=== PATIENT | male | born 1980 | race Caucasian/White ===

== ENCOUNTER 2024-10-25 15:04 | Emergency (ER) | payer BC ==
[2024-10-25] MEDS ORDERED: LIDOCAINE 1% MPF 5 ML VIAL ONE (15:39)
[2024-10-25] MEDS ORDERED: DOXYCYCLINE 100 MG CAP PO ONE (15:40)
[2024-10-25] MEDS ORDERED: TDAP (DIPHTH,PERTUSS(ACELL),TET VAC) 0.5 ML VIAL IMVAC ONE (15:40)
--- NOTE | 2024-10-25 18:09 | ER ---
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 Bleeding controlled with dressing in place. Coronavirus screen: Client denies travel out of the [place] in the last 14 days. At this time, the client does not indicate any symptoms associated with coronavirus-19. Ebola Screen: Patient denies travel to an Ebola-affected area in the 21 days before illness onset. Initial Sepsis Screen: Does the patient meet any 2 criteria? No. Patient's initial sepsis screen is negative. Does the patient have a suspected source of infection? No. Patient's initial sepsis screen is negative. Risk Assessment: Do you want to hurt yourself or someone else? Patient reports no desire to harm self or others. Onset of symptoms was October 25, 2024. 15:25 Method Of Arrival: Ambulatory ll1 15:25 Acuity: MICHA 4 ll1 Historical: - Allergies: 15:25 No Known Allergies; ll1 - Home Meds: 15:25 None [Active]; ll1 - PMHx: 15:25 None; ll1 - PSHx: 15:25 None; ll1 - Immunization history:: Client reports having NOT received the Covid vaccine. - Infectious Disease History:: Denies. - Social history:: Smoking status: Patient denies any tobacco usage or history of. Screenin:13 [facility] ED Fall Risk Assessment (Adult) History of falling in the last 3 months, kc6 including since admission Yes- single mechanical fall (1 pt) Confusion or Disorientation No (0 pts) Intoxicated or Sedated No (0 pts) Impaired Gait No (0 pts) Mobility Assist Device Used No (0 pt) Altered Elimination No (0 pt) Score/Fall Risk Level 0 - 2 = Low Risk Oriented to surroundings, Maintained a safe environment, Educated pt \T\ family on fall prevention, incl call for assistance when getting out of bed. Abuse screen: Denies threats or abuse. Denies injuries from another. Nutritional screening: No deficits noted. Tuberculosis screening: No symptoms or risk factors identified. Assessment: 16:13 General: Appears in no apparent distress. comfortable, well groomed, well developed, kc6 Behavior is calm, cooperative, appropriate for age. Pain: Complains of pain in dorsum of right foot. Neuro: Level of Consciousness is awake, alert, obeys commands, Oriented to person, place, time, situation, Appropriate for age. Cardiovascular: Capillary refill < 3 seconds. Respiratory: Airway is patent Trachea midline Respiratory effort is even, unlabored, Respiratory pattern is regular, symmetrical. GI: No signs and/or symptoms were reported involving the gastrointestinal system. : No signs and/or symptoms were reported regarding the genitourinary system. EENT: No signs and/or symptoms were reported regarding the EENT system. Derm: Skin is healthy with good turgor, Skin is pink, warm \T\ dry. Musculoskeletal: No signs and/or symptoms reported regarding the musculoskeletal system. Circulation, motion, and sensation intact. Range of motion: intact in all extremities. Injury Description: Laceration sustained to dorsum of right foot is jagged, 0.5 to 2.5 cm long, was sustained 30-60 minutes ago. a small amount of bleeding noted at this time. 17:21 Reassessment: Patient appears in no apparent distress at this time. No changes from kc6 previously documented assessment. Patient and/or family updated on plan of care and expected duration. Pain level reassessed. Patient is alert, oriented x 3, equal unlabored respirations, skin warm/dry/pink. 18:15 Reassessment: Patient appears in no apparent distress at this time. No changes from kc6 previously documented assessment. Patient and/or family updated on plan of care and expected duration. Pain level reassessed. Patient is alert, oriented x 3, equal unlabored respirations, skin warm/dry/pink. Vital Signs: 15:25 Pain 5/10; ll1 15:33 BP 141 / 92; Pulse 68; Resp 16 S; Pulse Ox 99% on R/A; kc6 18:16 BP 138 / 86; Pulse 70; Resp 18 S; Pulse Ox 99% on R/A; kc6 15:25 Pain Scale: Adult ll1 ED Course: 15:05 Patient arrived in ED. mr 15:08 [facility] Hutch[facility]C [facility] kb 15:09 Law Garay MD is Attending Physician. kb 15:21 Arm band placed on Patient placed in an exam room, on a stretcher. ph 15:27 Triage completed. ll1 15:32 Manuela Enriquez, PRANAV is Primary Nurse. kc6 16:13 Patient has correct armband on for positive identification. Bed in low position. Call kc6 light in reach. Side rails up X 1. Adult w/ patient. Pulse ox on. NIBP on. Door closed. Noise minimized. Lights dimmed. Pillow given. Verbal reassurance given. 16:13 Patient maintains SpO2 saturation greater than 95% on room air. kc6 17:21 Assist provider with laceration repair on dorsum of right foot that was between 2.6 to kc6 7.5 cm using sutures. Set up tray. Performed by Melina RILEY Dressed with 4X4s, Neosporin, Patient tolerated well. 18:11 XRAY Tib Fib RIGHT In Process Unspecified. EDMS 18:15 Patient did not have IV access during this emergency room visit. kc6 Administered Medications: 15:40 Drug: Doxycycline PO 100 mg PO once Route: PO; kc6 17:21 Follow up: Response: No adverse reaction kc6 15:40 Drug: Boostrix Tdap IM 0.5 ml IM once; as a single dose Route: IM; Site: right deltoid; kc6 17:21 Follow up: Response: No adverse reaction kc6 17:20 Drug: Lidocaine Infiltration (1 %) 1 vials 5 ml Infiltration once; to bedside Volume: 5 kc6 ml; Route: Infiltration; 17:21 Follow up: Response: No adverse reaction kc6 Medication: 18:15 VIS not applicable for this client. kc6 Outcome: 18:08 Discharge ordered by . kb 18:15 Discharged to home ambulatory, with friend, kc6 18:15 Condition: good 18:15 Discharge instructions given to patient, friend, Instructed on discharge instructions, follow up and referral plans. medication usage, wound care, Demonstrated understanding of instructions, follow-up care, medications, wound care, Prescriptions given X 1, 18:16 Patient left the ED. kc6 Signatures: Dispatcher [employer] EDWY Melina Hutchison FNP-C TOBACCO CURER-CkKatie Royal Reg Reg mr Maurice, Radha, RN RN ph Raymon, Juan Miguel, RN RN ll1 Manuela Enriquez, RN RN kc6
--- NOTE | 2024-10-25 18:09 | EDPHYS ---
Physician Documentation [facility] Name: James Perez Age: 44 yrs Sex: Male : 1980 Arrival Date: 10/25/2024 Time: 15:04 Bed 18 Private MD: ED Physician Law Garay HPI: 10/25 17:33 This 44 yrs old Male presents to ER via Ambulatory with complaints of Ankle laceration. 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 States he had a stake in the sand, pulled the bungee cord that was connected back and the stake came out. States the stake hit him in the right ankle causing laceration. . Historical: - Allergies: 15:25 No Known Allergies; ll1 - Home Meds: 15:25 None [Active]; ll1 - PMHx: 15:25 None; ll1 - PSHx: 15:25 None; ll1 - Immunization history:: Client reports having NOT received the Covid vaccine. - Infectious Disease History:: Denies. - Social history:: Smoking status: Patient denies any tobacco usage or history of. ROS: 17:29 Constitutional: As per HPI kb Exam: 17:30 Constitutional: This is a well developed, well nourished patient who is awake, alert, kb and in no acute distress. Head/Face: Normocephalic, atraumatic. ENT: Moist Mucous membranes Cardiovascular: Regular rate Respiratory: Respirations even and unlabored. No increased work of breathing. Talking in full sentences MS/ Extremity: Pulses equal, no cyanosis. Neurovascular intact. Full, normal range of motion. Neuro: Awake and alert, GCS 15, oriented to person, place, time, and situation. 17:30 Skin: injury, laceration(s), the wound is approximately 4 cm(s), of the anterior aspect of right ankle, that can be described as clean, no foreign body, linear, without bleeding, Vital Signs: 15:25 Pain 5/10; ll1 15:33 BP 141 / 92; Pulse 68; Resp 16 S; Pulse Ox 99% on R/A; kc6 18:16 BP 138 / 86; Pulse 70; Resp 18 S; Pulse Ox 99% on R/A; kc6 15:25 Pain Scale: Adult ll1 Laceration: 17:29 Wound Repair of 4cm ( 1.6in ) subcutaneous laceration to anterior aspect of right kb ankle. Linear shaped.. Distal neuro/vascular/tendon intact. Anesthesia: Wound infiltrated with 3 mls of 1% lidocaine. Wound prep: Extensive cleansing with hibiclenz by me, Wound irrigation with saline by me. Skin closed with 3 4-0 Prolene using cruciate knots. Patient tolerated well. MDM: 15:09 Medical Screening Exam initiated kb 17:30 Data reviewed: vital signs, nurses notes. kb 18:07 Differential diagnosis: superficial laceration, tendon injury, vascular injury, kb fracture, contusion. Independent interpretation of the following test(s) in the Emergency Department X-Ray: My interpretation is no fracture. Counseling: I had a detailed discussion with the patient and/or guardian regarding the historical points, exam findings, and any diagnostic results supporting the discharge/admit diagnosis, radiology results, the need for outpatient follow up, a family practitioner, to return to the emergency department if symptoms worsen or persist or if there are any questions or concerns that arise at home. 03 17:04 Order name: XRAY Tib Fib RIGHT db 10/25 15:26 Order name: Dressing - Wound; Complete Time: 17:20 kb 10/25 15:26 Order name: Gloves, Sterile: 6.0; Complete Time: 15:37 kb 10/25 15:26 Order name: Prolene, Sutures: 4.0; Complete Time: 15:37 kb 10/25 15:26 Order name: Setup Suture Tray; Complete Time: 15:37 kb Administered Medications: 15:40 Drug: Doxycycline PO 100 mg PO once Route: PO; kc6 17:21 Follow up: Response: No adverse reaction kc6 15:40 Drug: Boostrix Tdap IM 0.5 ml IM once; as a single dose Route: IM; Site: right deltoid; kc6 17:21 Follow up: Response: No adverse reaction kc6 17:20 Drug: Lidocaine Infiltration (1 %) 1 vials 5 ml Infiltration once; to bedside Volume: 5 kc6 ml; Route: Infiltration; 17:21 Follow up: Response: No adverse reaction kc6 Disposition: 21:00 Co-signature as Attending Physician, Law Garay MD I reviewed the patient's care rt provided by the Advanced Practice Provider and agree with the diagnosis and treatment plan. Disposition Summary: 10/25/24 18:08 Discharge Ordered Notes: Location: Home kb Condition: Stable kb Diagnosis - Laceration without foreign body of lower leg kb Followup: kb - With: Emergency Department - When: As needed - Reason: Worsening of condition Followup: kb - With: Private Physician - When: 2 - 3 days - Reason: Recheck today's complaints, Continuance of care, Re-evaluation by your physician Discharge Instructions: - Discharge Summary Sheet kb - Laceration Care, Adult, [id number] kb Forms: - Medication Reconciliation Form kb - Antibiotic Education kb - Prescription Opioid Use kb - Patient Portal Instructions kb - Leadership Thank You Letter kb Prescriptions: - Doxycycline Hyclate 100 mg Oral Tablet - take 1 tablet ORAL route every 12 hours; 20 tablet; Refills: 0, Product kb Selection Permitted Signatures: Dispatcher [employer] EDMS Melina Hutchison, ROBERC AYAKA-Juan Miguel Loyd RN RN ll1 Manuela Enriquez RN RN kc6 Law Garay MD MD rt
[2024-10-25 18:39] VITALS: O2SAT 99
[2024-10-25 18:40] VITALS: BP 138/86
--- NOTE | 2024-10-25 19:17 | RAD REPORT ---
EXAMINATION: XR Tib Fib Right CLINICAL INDICATION: Male, 44 years old. PAIN TECHNIQUE: 2 view radiograph of the right tibia and fibula were obtained. COMPARISON: No prior exam. FINDINGS: No evidence of fracture or dislocation. Normal alignment. Suspected small to moderate supra patellar knee joint effusion. No evidence of arthropathy or other focal bone lesion. Soft tissues are unremarkable. IMPRESSION: No acute osseous abnormalities. Suspected small to moderate suprapatellar knee joint effusion.
== END 2024-10-25 18:16 | disposition home or self-care (01) ==
LOC: ER 15:04
DX: S91.011A Laceration without foreign body, right ankle, initial encounter (principal); W22.8XXA Striking against or struck by other objects, initial encounter
CPT/HCPCS: 73590; 12042; J2003; 12032; 96372; 99284